=== PATIENT | male | born 1955 | race Two or more races ===

== ENCOUNTER 2019-06-13 20:32 | Emergency (ER) | payer BC, MEDICAID ==
[~2019-06-13] VITALS: Ht 165.1 cm; Wt 70.3 kg
[2019-06-13] MEDS ORDERED: SODIUM CHLORIDE 0.9% 250 ML IV ONE (21:27)
[2019-06-13] MEDS ORDERED: SODIUM CHLORIDE 0.9% 1,000 ML IV ONE (21:29)
[2019-06-13] MEDS ORDERED: DEXTROSE (50%) 50ML SYRG IV ONE ×2 (21:45→22:00)
[2019-06-13] MEDS ORDERED: ACCU-CHEK COMFORT CURVE STRIP VI ONE ×2 (21:45→22:00)
[2019-06-13 22:15] LABS: Basophils # (auto) 0 uL; Basophils % (auto) 0.2 % (0.0-2.0); Eosinophils # (auto) 0.1 uL; Eosinophils % (auto) 0.7 % (0.0-7.0); Hematocrit 40.2 % (41.0-53.0); Hemoglobin 13.4 g/dL (13.5-17.5); Lymphocytes # (auto) 0.8 uL; Lymphocytes % (auto) 8.8 % (10.0-50.0); Mean Corpuscular Hemoglobin 29.6 pg (28.0-32.0); Mean Corpuscular Hgb Conc. 33.3 g/dL (32.0-36.0); Monocytes # (auto) 0.6 uL; Monocytes % (auto) 6.9 % (0.0-12.0); Neutrophils # (auto) 7.8 uL; Neutrophils % (auto) 83.4 % (37.0-80.0); Platelet Count (auto) 306 10^3/uL (140-450); Red Blood Cells 4.51 10^6/uL (4.5-5.90); Red Cell Distribution Width 13.9 % (11.8-14.3); White Blood Cell 9.4 10^3/uL (4.4-10.8)
[2019-06-13 22:26] LABS: Anion Gap 11 (5-15); BUN/Creatinine Ratio 12.8; Blood Urea Nitrogen 10 mg/dL (7-18); Carbon Dioxide 26 mmol/L (21-32); Chloride 103 mmol/L (98-107); GFR African American 129 mL/min; GFR Non-African American 107 mL/min; Glucose 174 mg/dL (74-106); Potassium 3.5 mmol/L (3.5-5.1); Sodium 140 mmol/L (136-145)
[2019-06-13 22:27] LABS: Albumin 2.7 g/dL (3.4-5.0); Calcium 8.3 mg/dL (8.5-10.1); Magnesium 1.9 mg/dL (1.6-2.6)
[2019-06-13 22:29] LABS: INR 1.06 (0.9-1.15); Partial Thromboplastin Time 32.2 sec (23.64-32.05)
[2019-06-13 22:33] LABS: Alanine Aminotransferase 32 U/L (16-61); Alkaline Phosphatase 97 U/L (45-117); Aspartate Aminotransferase 16 U/L (15-37); Bilirubin, Total 0.6 mg/dL (0.2-1.0); Total Protein 7.6 g/dL (6.4-8.2)
[2019-06-13] MEDS ORDERED: DEXTROSE 10% 1,000 ML IV ONE (23:45)
[2019-06-14] MEDS ORDERED: LORazepam 2MG/ML-1ML VIAL IV ONE (01:00)
[2019-06-14] MEDS ORDERED: DEXTROSE 10% 1,000 ML IV SCH (04:00)
[2019-06-14 07:15] VITALS: BP 151/83
[2019-06-14] MEDS ORDERED: DEXTROSE (50%) 50ML SYRG IV ONE ×2 (07:15)
[2019-06-14] MEDS ORDERED: METOPROLOL SUCCINATE XL 50 MG TAB PO ONE (08:30)
== END 2019-06-14 10:42 | disposition home or self-care (01) ==
LOC: ER 20:36
DX: E11.649 Type 2 diabetes mellitus with hypoglycemia without coma (principal); E86.0 Dehydration; N28.9 Disorder of kidney and ureter, unspecified; Z86.73 Personal history of transient ischemic attack (TIA), and cerebral infarction without residual deficits
CPT/HCPCS: 36415; 71045; 74176; 80053; 82962; 83735; 83880; 84484; 85025; 85379; 85610; 85730; 93005; 94761; 96361; 96365; 96366; 96375; 96376; 99284; J2060; J7042